=== PATIENT | female | born 1970 | race Hispanic/Latino ===

== ENCOUNTER 2017-01-17 08:57 | Inpatient (IN) | payer OTHER ==
[2017-01-17 10:17] LABS: Basophils % (Auto) 0.2 % (0.0-1.8); Eosinophils % (Auto) 0.4 % (0.0-4.3); Hematocrit 26.1 % (30.3-42.9); Hemoglobin 8.1 gm/dl (10.1-14.3); Mean Corpuscular HGB Conc 31 % (30-34); Mean Corpuscular Volume 82 fl (79-97); Platelet Count 187 K/mm3 (140-440); Red Blood Count 3.19 M/mm3 (3.65-5.03); Red Cell Distribution Width 15.4 % (13.2-15.2); White Blood Count 6.2 K/mm3 (4.5-11.0)
--- NOTE | 2017-01-17 10:21 | Cat Scan Report ---
HEAD CT WITHOUT CONTRAST INDICATION: Neurologic deficits less than 6 hours or symptoms present upon awakening. 98N. COMPARISON: None similar at this institution. FINDINGS: Noncontrast head CT demonstrates normal ventricles and sulci without acute or recent infarct, hemorrhage, mass effect or midline shift. No abnormal extra-axial fluid collections. Posterior fossa structures and basilar cisterns appear within normal limits. Mild left sphenoid sinus mucosal thickening. Clear remainder imaged paranasal sinuses and mastoid air cells. Slight leftward nasal septal bowing. Intact calvarium. Normal scalp soft tissues. Few missing teeth. CONCLUSION: No acute intracranial CT abnormality with few other findings, as above. MRI is more sensitive for detection of acute infarct and may be useful for further evaluation in the setting of a focal neurologic deficit. I phoned the above results to Dr. Scott in the ER, 10:10 AM, 01/17/2017. Thank you for the opportunity to participate in this patient's care.
[2017-01-17 10:22] LABS: Mean Corpuscular Hemoglobin 25 pg (28-32)
[2017-01-17 10:26] LABS: INR 0.88 (0.87-1.13); Partial Thromboplastin Time 26.9 Sec. (24.2-36.6)
[2017-01-17 10:33] LABS: BUN/Creatinine Ratio 14.28; Blood Urea Nitrogen 10 mg/dL (7-17); Calcium 8.3 mg/dL (8.4-10.2); Carbon Dioxide 21 mmol/L (22-30); Glucose 102 mg/dL (65-100)
[2017-01-17 10:34] LABS: Anion Gap 16 mmol/L; Chloride 108.5 mmol/L (98-107); Potassium 3.7 mmol/L (3.6-5.0); Sodium 142 mmol/L (137-145)
[2017-01-17] MEDS ORDERED: ASPIRIN PO ONE (10:52)
--- NOTE | 2017-01-17 11:02 | Emergency Department Report ---
HPI - General Chief Complaint: Neuro Symptoms/Deficit Time Seen by Provider: 01/17/17 10:43 - HPI HPI: Room 4 The patient is a 46-year-old female presenting with a chief complaint of right- sided weakness. Patient states she awakened this morning at approximately 06: 00 and was unable to move her right arm or leg. The patient states she had tingling in her entire right side of her body and had developed slurred speech. Patient states on her way to the hospital she was able to move her right side slightly. The patient states the weakness has since resolved and now she just feels as though her speech is a little slurred and she still has tingling on the right side of her body. Patient denies any previous episodes of the same. Of note the patient states she has a history of menorrhagia and has prolonged cycles. The patient states her current cycle has been on for approximately 5 weeks and is now subsiding. Patient states she goes through approximately 15 pads per day when she is on her cycle Location: Right side Duration: Intermittent since 06:00 Quality:, Weakness, Tingling Severity: Moderate Modifying factors: [see above] Context: [see above] Mode of transportation: [not driving] ED Past Medical Hx - Past Medical History Previous Medical History?: Yes Additional medical history: Aortic stenosis, menorrhagia - Surgical History Past Surgical History?: Yes Hx Open Heart Surgery: Yes (Aortic Valvulotomy at age 12) - Family History Family history: no significant - Social History Smoking Status: Current Every Day Smoker (1/2 pack per day) Substance Use Type: Alcohol - Medications Home Medications: Home Medications Medication Instructions Recorded Confirmed Last Taken Type No Known Home Medications [No 01/17/17 01/17/17 Unknown History Reported Home Medications] ED Review of Systems ROS: Stated complaint: RT SIDE NUMBNESS Other details as noted in HPI Comment: All other systems reviewed and negative Constitutional: denies: chills, fever Eyes: denies: eye pain, eye discharge, vision change ENT: denies: ear pain, throat pain Respiratory: denies: cough, shortness of breath, wheezing Cardiovascular: denies: chest pain, palpitations Endocrine: no symptoms reported Gastrointestinal: denies: abdominal pain, nausea, diarrhea Genitourinary: abnormal menses. denies: urgency, dysuria, discharge Musculoskeletal: denies: back pain, joint swelling, arthralgia Skin: denies: rash, lesions Neurological: weakness, paresthesias. denies: headache Psychiatric: denies: anxiety, depression Hematological/Lymphatic: denies: easy bleeding, easy bruising Physical Exam - Physical Exam Vital Signs: Vital Signs 01/17/17 01/17/17 01/17/17 09:10 10:09 10:10 Temperature 97.9 F Pulse Rate 75 67 61 Respiratory 16 14 14 Rate Blood Pressure 156/76 O2 Sat by Pulse 100 100 Oximetry 01/17/17 01/17/17 10:21 10:30 Temperature Pulse Rate 70 78 Respiratory 12 14 Rate Blood Pressure 128/76 120/58 O2 Sat by Pulse Oximetry Physical Exam: GENERAL: The patient is well-developed well-nourished female lying on stretcher not appearing to be in acute distress. [] HEENT: Normocephalic. Atraumatic. Extraocular motions are intact. Patient has moist mucous membranes. NECK: Supple. Trachea Midline CHEST/LUNGS: Clear to auscultation. There is no respiratory distress noted. HEART/CARDIOVASCULAR: Regular. There is no tachycardia. There is no gallop rub or murmur. ABDOMEN: Abdomen is soft, nontender. Patient has normal bowel sounds. There is no abdominal distention. SKIN: There is no rash. There is no edema. There is no diaphoresis. NEURO: The patient is awake, alert, and oriented. The patient is cooperative. The patient has no focal neurologic deficits. The patient has normal speech. Cranial nerves II through XII grossly intact, no drift, lifestyle director 5+/5 bilaterally. Normal sensation throughout. Moves all extremities well MUSCULOSKELETAL: There is no evidence of acute injury. 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 Harding- requests that the hospitalist but in a consult if they would like him to see the patient while she is in the hospital ED Medical Decision Making - Lab Data Result diagrams: 01/17/17 09:58 01/17/17 09:58 Laboratory Tests 01/17/17 01/17/17 01/17/17 09:58 09:58 09:58 WBC 6.2 RBC 3.19 L Hgb 8.1 L Hct 26.1 L MCV 82 MCH 25 L MCHC 31 RDW 15.4 H Plt Count 187 Lymph % (Auto) 15.5 [place] % (Auto) 9.6 H Eos % (Auto) 0.4 Baso % (Auto) 0.2 Lymph # 1.0 L [place] # 0.6 Eos # 0.0 Baso # 0.0 Seg Neutrophils % 74.3 H Seg Neutrophils # 4.6 PT 11.8 L INR 0.88 APTT 26.9 Thrombin Time Sodium 142 Potassium 3.7 Chloride 108.5 H Carbon Dioxide 21 L Anion Gap 16 BUN 10 Creatinine 0.7 Estimated GFR > 60 BUN/Creatinine Ratio 14.28 Glucose 102 H Calcium 8.3 L Troponin T < 0.010 01/17/17 09:58 WBC RBC Hgb Hct MCV MCH MCHC RDW Plt Count Lymph % (Auto) [place] % (Auto) Eos % (Auto) Baso % (Auto) Lymph # [place] # Eos # Baso # Seg Neutrophils % Seg Neutrophils # PT INR APTT Thrombin Time 16.3 Sodium Potassium Chloride Carbon Dioxide Anion Gap BUN Creatinine Estimated GFR BUN/Creatinine Ratio Glucose Calcium Troponin T - EKG Data -: EKG Interpreted by Or EKG shows normal: sinus rhythm Rate: normal - EKG Data When compared to previous EKG there are: previous EKG unavailable Interpretation: nonspecific ST-T wave jasson (biphasic T waves in leads 2, 3, aVF, V6) - Radiology Data Radiology results: report reviewed (CT head), image reviewed (CT head) CT head (read by radiologist)-no acute intracranial CT abnormality with a few other findings. - Differential Diagnosis CVA, TIA, menorrhagia Critical care attestation.: If time is entered above; I have spent that time in minutes in the direct care of this critically ill patient, excluding procedure time. ED Disposition Clinical Impression: Transient neurologic deficit, Menorrhagia Disposition: OP ADMITTED IP TO THIS HOSP Is pt being admited?: Yes Does the pt Need Aspirin: Yes Condition: Fair Referrals: PRIMARY CARE, [Primary Care Provider] - 3-5 Days Time of Disposition: 11:04 (hospitalist paged)
--- NOTE | 2017-01-17 11:17 | Admit Criteria Form ---
Admission Criteria Documentation: TRANSIENT ISCHEMIC ATTACK (TIA) Clinical Indications for Admission to Inpatient Care (Place 'X' for any and all applicable criteria): Admission is indicated for ANY ONE of the following(1)(2)(3)(4)(5): [ ]I. Immediate inpatient procedure is needed (eg, endarterectomy). [X ]II. Inpatient admission required rather than observation care (Also use Transient Ischemic Attack (TIA): Observation Care Criteria as appropriate) because of ANY ONE of the following: [X ]a) Focal neurologic signs or symptoms persist or recurring [ ]b) Cardiac arrhythmias of immediate concern [ ]c) Clinically significant cardiac disorder identified that requires inpatient care (eg, severe valvular disease, atrial myxoma, cardiomyopathy) [ ]d) Hypertension requiring inpatient treatment [ ]e) Parenteral anticoagulation required (eg, alternative forms of anticoagulation not appropriate or not feasible) as indicated by ALL of the following(13): [ ]i) Temporary subtherapeutic anticoagulation unacceptable because of high risk of short-term venous or arterial thromboembolism due to ANY ONE of the following(14)(15)(16): [ ]1) Atrial fibrillation suspected as etiology of TIA(17)(18)(19)(20)(21) [ ]2) Venous thromboembolism within past 12 months [ ]3) Underlying malignancy [ ]4) Patient with mechanical cardiac valve(22)( 23) [ ]5) Underlying hypercoagulable state (eg, protein C or protein S deficiency antithrombin deficiency, antiphospholipid antibodies) [ ]6) Patient at temporary high risk of thromboembolism (eg, status post orthopedic surgery) [ ]ii) Contraindications to outpatient use of "bridging" agent or alternative oral anticoagulant[B] as indicated by ALL of the following: [ ]1) Contraindication to outpatient use of low- molecular-weight heparin as "bridging" agent as indicated by ANY ONE of the following(15): [ ]A. Documented current or history of heparin-induced thrombocytopenia(24) [ ]B. Severe thrombocytopenia (eg, platelet count less than 50,000/mm3 (71p592/L) [ ]C. Documented allergy to heparin, low- molecular-weight heparin, or pork products [ ]D. Renal failure (creatinine clearance less than 30 mL/min/1.73m2 (0.50mL/sec/1.73m2) or on dialysis) [ ]E. Inability to manage self-injection ( eg, by patient, caregiver, or visiting nurse) [ ]2) Contraindication to outpatient use of fondaparinux as "bridging" agent as indicated by ANY ONE of the following(25)(26 )(27)(28): [ ]A. Severe thrombocytopenia (eg, platelet count less than 50,000/mm3 (50 x109/L)) [ ]B.Hypersensitivity to fondaparinux, related drugs, or product components [ ]C.Renal failure (creatinine clearance less than 30 mL/min/1.73m2 (0.50mL/sec/1.73m2) or on dialysis) [ ]D.Inability to manage self-injection ( eg, by patient, caregiver, or visiting nurse [ ]3. Oral direct thrombin inhibitor (eg, dabigatran) or oral coagulation factor Xa inhibitor (eg, rivaroxaban, apixaban) not appropriate as oral anticoagulation (eg, indication not appropriate) or contraindicated (eg, hypersensitivity, creatinine clearance less than 15 mL/min/1.73m2 ( 0.25 mL/sec/1.73m2) or on dialysis). [ ]f) Continuous IV infusion of anticoagulant, platelet inhibitor, vasoactive or antiarrhythmia(18)(19) [ ]g) Other condition, treatment, or monitoring requiring inpatient admission [ ]III. Contraindications and/or Inappropriate clinical situations for Observational Care in patients with Transient Ischemic Attack (TIA), when ANY ONE of the following is required: [ ]a) Patient with persistent or severe neurological deficit 24 [ ]b) Patient with acute CVA or other identified pathology should be admitted to inpatient for further care 25 [ ]IV. General contraindications and/or Inappropriate clinical situations for Observational Care in patients with Transient Ischemic Attack (TIA), when ANY ONE of the following is required: [ ]a) Prediction of prolongation of LOS based on ANY ONE of the following may be considered as a contraindication for observational care 2, 3, 4, 5, 6, 7, 8, 9, 10, 11 [ ]i) Age > 65 yrs. [ ]ii) Patient arriving by ambulance [ ]iii) Patient with high acuity [ ]iv) Patient requiring vital sign monitoring [ ]v) Patient on IV medication [ ]b) Systolic blood pressures 180mmHg 3,12 [ ]c) Patient with altered mental status including delirium and other alteration of consciousness, (3) [ ]d) Patient whose discharge disposition will be to a detention home or rehabilitation home should not be managed in Emergency Department Observation Unit. CMS rule requires 3 days hospital stay before such placement.3,13 [ ]e) Patient with failure to thrive due to broad array of etiologies 3,16,17 [ ]f) Inability to ambulate 3,14 Extended stay beyond goal length of stay may be needed for(4)(30)(32): [ ]a) Parenteral anticoagulation required [ ]b) Dangerous arrhythmia [ ]c) Cardiac valvular disorder, atrial myxoma, cardiomyopathy [ ]d) Uncontrolled severe hypertension [ ]e) Severe carotid stenosis [ ]f) Active comorbidities (eg, heart failure) [ ]g) Extracranial vertebrobasilar disease(29) [ ]h) Clinical evolution of TIA into cerebrovascular accident (stroke) The original [employer] content created by [employer] has been revised. The portions of thecontent which have been revised are identified through the use of italic text or in bold, and [facility] has neither reviewed nor approved the modified material. All other unmodified content is copyright [email or web address] [employer] [employer]. Please see references footnoted in the original [email or web address] edition 2016 Admission Criteria Met: Yes
--- NOTE | 2017-01-17 21:24 | History and Physical Report ---
History of Present Illness Date of examination: 01/17/17 Date of admission: 01/17/17 11:19 Chief complaint: CC R side numbness and weakness since 6am through 12noon. Also facial droop since 6 am which has resolved in couple of hours. History of present illness: 46 y/o female with no significant PMH except congenital Aortic stenosis which was repaired at age 12 yrs comes in for Rt upper extremity and RLE numbness and weakness since 6 am which resolved completely by 12 noon.Was not able to walk.Also had slurred speechwhich has resolved.No CP or SOB.Has been doing cocaine off and on for last 10 years.Last use was 3 days ago.No recent travel.Not on any blood thenners. Past History Past Medical History: other (Aortic stenosis with valvotomy at age 12; Menorrhagia for 1 mth) Past Surgical History: Other (Aortic stenosis with valvotomy and D&c) Social history: lives with family, smoking (1/2 ppd), full code, other (Cocaine use for 10 years) Family history: hypertension Medications and Allergies Allergies Allergy/AdvReac Type Severity Reaction Status Date / Time No Known Allergies Allergy Unverified 01/17/17 09:15 Home Medications Medication Instructions Recorded Confirmed Last Taken Type No Known Home Medications [No 01/17/17 01/17/17 Unknown History Reported Home Medications] Review of Systems Constitutional: no weight loss, no weight gain Ears, nose, mouth and throat: no hoarseness, no sore throat, no swelling in mouth, no swelling in throat Cardiovascular: no chest pain, no orthopnea, no palpitations, no rapid/ irregular heart beat, no edema, no syncope, no lightheadedness, no shortness of breath Respiratory: no shortness of breath, no dyspnea on exertion, no congestion, no wheezing Gastrointestinal: no nausea, no vomiting, no diarrhea, no constipation, no change in bowel habits, no hematemesis, no coffee ground emesis Genitourinary Female: menorrhagia (Excessive vaginal bleeding for 1 mth.Similar episode in 2015) Musculoskeletal: no neck stiffness, no neck pain, no shooting arm pain, no arm numbness/tingling, no low back pain, no shooting leg pain, no leg numbness/ tingling, no redness of joints Integumentary: no rash, no pruritis, no redness, no sores, no wounds, no jaundice, no boils, no blisters Neurological: transient paralysis (RUE and RLE), parathesias Psychiatric: no anxiety, no depression Endocrine: no cold intolerance, no heat intolerance, no polydipsia, no polyuria , no weight change Hematologic/Lymphatic: no easy bruising, no easy bleeding Allergic/Immunologic: no urticaria, no allergic rhinitis, no wheezing Exam - Physical Exam Narrative exam: Well developed well nourished female lying bed comfortably - Constitutional Vitals: Temp Pulse Resp BP Pulse Ox 98.6 F 80 18 121/70 98 01/17/17 21:05 01/17/17 21:05 01/17/17 21:05 01/17/17 21:05 01/17/17 21:05 General appearance: Present: no acute distress, well-nourished - EENT Eyes: Present: PERRL ENT: hearing intact, clear oral mucosa - Neck Neck: Present: supple, normal ROM - Respiratory Respiratory effort: normal Respiratory: bilateral: CTA - Cardiovascular Heart rate: 70 Rhythm: regular Heart Sounds: Present: S1 & S2. Absent: rub, click - Extremities Extremities: no ischemia, pulses intact, pulses symmetrical, No edema Peripheral Pulses: within normal limits - Abdominal General gastrointestinal: Present: soft, non-tender, non-distended, normal bowel sounds Female genitourinary: Present: normal - Integumentary Integumentary: Present: clear, warm, dry - Musculoskeletal Musculoskeletal: strength equal bilaterally, other (Reflexes normal power 5/5 all 4 extremities) - Psychiatric Psychiatric: appropriate mood/affect, intact judgment & insight - Neurologic Neurologic: CNII-XII intact, moves all extremities Results - Labs CBC & Chem 7: 01/18/17 04:01 01/18/17 04:01 Labs: Laboratory Last Values WBC 6.2 K/mm3 (4.5-11.0) 01/17/17 09:58 RBC 3.19 M/mm3 (3.65-5.03) L 01/17/17 09:58 Hgb 8.1 gm/dl (10.1-14.3) L 01/17/17 09:58 Hct 26.1 % (30.3-42.9) L 01/17/17 09:58 MCV 82 fl (79-97) 01/17/17 09:58 MCH 25 pg (28-32) L 01/17/17 09:58 MCHC 31 % (30-34) 01/17/17 09:58 RDW 15.4 % (13.2-15.2) H 01/17/17 09:58 Plt Count 187 K/mm3 (140-440) 01/17/17 09:58 Lymph % (Auto) 15.5 % (13.4-35.0) 01/17/17 09:58 Jay % (Auto) 9.6 % (0.0-7.3) H 01/17/17 09:58 Eos % (Auto) 0.4 % (0.0-4.3) 01/17/17 09:58 Baso % (Auto) 0.2 % (0.0-1.8) 01/17/17 09:58 Lymph # 1.0 K/mm3 (1.2-5.4) L 01/17/17 09:58 Jay # 0.6 K/mm3 (0.0-0.8) 01/17/17 09:58 Eos # 0.0 K/mm3 (0.0-0.4) 01/17/17 09:58 Baso # 0.0 K/mm3 (0.0-0.1) 01/17/17 09:58 Seg Neutrophils % 74.3 % (40.0-70.0) H 01/17/17 09:58 Seg Neutrophils # 4.6 K/mm3 (1.8-7.7) 01/17/17 09:58 PT 11.8 Sec. (12.2-14.9) L 01/17/17 09:58 INR 0.88 (0.87-1.13) 01/17/17 09:58 APTT 26.9 Sec. (24.2-36.6) 01/17/17 09:58 Thrombin Time 16.3 Sec. (15.1-19.6) 01/17/17 09:58 Sodium 142 mmol/L (137-145) 01/17/17 09:58 Potassium 3.7 mmol/L (3.6-5.0) 01/17/17 09:58 Chloride 108.5 mmol/L (98-107) H 01/17/17 09:58 Carbon Dioxide 21 mmol/L (22-30) L 01/17/17 09:58 Anion Gap 16 mmol/L 01/17/17 09:58 BUN 10 mg/dL (7-17) 01/17/17 09:58 Creatinine 0.7 mg/dL (0.7-1.2) 01/17/17 09:58 Estimated GFR > 60 ml/min 01/17/17 09:58 BUN/Creatinine Ratio 14.28 % 01/17/17 09:58 Glucose 102 mg/dL (65-100) H 01/17/17 09:58 Calcium 8.3 mg/dL (8.4-10.2) L 01/17/17 09:58 Troponin T < 0.010 ng/mL (0.00-0.029) 01/17/17 09:58 Short CBC 01/17/17 01/18/17 Range/Units 09:58 04:01 WBC 6.2 5.0 (4.5-11.0) K/mm3 Hgb 8.1 L 7.6 L (10.1-14.3) gm/dl Hct 26.1 L 24.5 L (30.3-42.9) % Plt Count 187 163 (140-440) K/mm3 BMP 01/17/17 01/18/17 09:58 04:01 Sodium 142 143 Potassium 3.7 3.5 L Chloride 108.5 H 109.7 H Carbon Dioxide 21 L 22 BUN 10 9 Creatinine 0.7 0.7 Glucose 102 H 118 H Calcium 8.3 L 7.8 L Cardiac Enzymes 01/17/17 Range/Units 09:58 Troponin T < 0.010 (0.00-0.029) ng/mL Liver Function 01/18/17 Range/Units 04:01 Total Bilirubin < 0.2 (0.1-1.2) mg/dL AST 12 (5-40) units/L ALT 8 (7-56) units/L Alkaline Phosphatase 67 (35-129) units/L Albumin 2.8 L (3.9-5) g/dL - Imaging and Cardiology CT Scan - head: report reviewed (Negative) Assessment and Plan Advance Directives: Yes (Full code) VTE prophylaxis?: Chemical, Mechanical (SCD's only.No Lovenox b/c of Menorrhagia ) Plan of care discussed with patient/family: Yes - Patient Problems (1) Transient neurologic deficit Current Visit: Yes Status: Acute Plan to address problem: Classic TIA - work up for TIA.-MRI /MRA/ECHO /Carotid duplex ordered.[id number] 2 tabs qd . (2) Anemia Current Visit: Yes Status: Acute Qualifiers: Anemia type: iron deficiency Iron deficiency anemia type: I Vitamin B12 deficiency anemia type: V Folate deficiency anemia type: F Bone marrow failure anemia type: B Hemolytic anemia type: H Other causes of anemia: O Plan to address problem: Sec to Menorrhagia.Iron supplements.[employer] consult ordered.No PRBC at this point. (3) Cocaine abuse Current Visit: Yes Status: Acute Plan to address problem: Counselled (4) Nicotine dependence Current Visit: Yes Status: Chronic Qualifiers: Nicotine product type: cigarettes Substance use status: S Plan to address problem: Nicoderm patch ordered (5) DVT prophylaxis Current Visit: Yes Status: Chronic Plan to address problem: SCD's only
[2017-01-17] MEDS ORDERED: MILK OF MAGNESIA PO PRN ×2 (21:28→21:30)
[2017-01-17] MEDS ORDERED: DULCOLAX PR PRN ×2 (21:28→21:30)
[2017-01-17] MEDS ORDERED: AMBIEN PO PRN (21:28)
[2017-01-17] MEDS ORDERED: DILAUDID IV PRN (21:28)
[2017-01-17] MEDS ORDERED: TYLENOL PO PRN ×2 (21:28→21:30)
[2017-01-17] MEDS ORDERED: ZOFRAN IV PRN ×2 (21:28→21:30)
[2017-01-17] MEDS ORDERED: PERCOCET 5/325 PO PRN (21:28)
[2017-01-17] MEDS ORDERED: SODIUM CHLORIDE FLUSH SYRINGE 10 ML IV PRN (21:40)
[2017-01-17] MEDS ORDERED: D5NS 1,000 ML IV SCH (22:00)
[2017-01-17] MEDS ORDERED: ZOCOR PO SCH (23:00)
[2017-01-18 05:48] LABS: Basophils % (Auto) 0.3 % (0.0-1.8); Hematocrit 24.5 % (30.3-42.9); Hemoglobin 7.6 gm/dl (10.1-14.3); Mean Corpuscular HGB Conc 31 % (30-34); Mean Corpuscular Volume 83 fl (79-97); Platelet Count 163 K/mm3 (140-440); Red Blood Count 2.96 M/mm3 (3.65-5.03); Red Cell Distribution Width 15.3 % (13.2-15.2)
[2017-01-18 05:50] LABS: Alanine Aminotransferase 8 units/L (7-56); Albumin 2.8 g/dL (3.9-5); Alkaline Phosphatase 67 units/L (35-129); Anion Gap 15 mmol/L; BUN/Creatinine Ratio 12.85; Bilirubin,Total < 0.2 mg/dL (0.1-1.2); Blood Urea Nitrogen 9 mg/dL (7-17); Calcium 7.8 mg/dL (8.4-10.2); Carbon Dioxide 22 mmol/L (22-30); Chloride 109.7 mmol/L (98-107); Glucose 118 mg/dL (65-100); Mean Corpuscular Hemoglobin 26 pg (28-32); Potassium 3.5 mmol/L (3.6-5.0); Sodium 143 mmol/L (137-145); Total Protein 5.5 g/dL (6.3-8.2)
[2017-01-18 06:08] LABS: Cholesterol 114 mg/dL (50-199); HDL Cholesterol 42 mg/dL (40-59); LDL Cholesterol,Direct 60 mg/dL (50-130); Triglycerides 62 mg/dL (2-149)
[2017-01-18] MEDS ORDERED: K-DUR PO ONE (08:01)
[2017-01-18] MEDS ORDERED: NACL 0.9% 500 ML 500 ML IV ONE (08:15)
[2017-01-18 09:01] LABS: Iron 9 ug/dL (37-170); Transferrin 287 mg/dl (192-382)
[2017-01-18] MEDS ORDERED: BABY ASPIRIN PO SCH (10:00)
[2017-01-18] MEDS ORDERED: HABITROL TD SCH (10:00)
--- NOTE | 2017-01-18 10:47 | Discharge Summary ---
Providers - Providers Date of Admission: 01/17/17 11:19 Date of discharge: 01/18/17 Attending physician: TEJA NAGY MD 01/17/17 21:28 Consult to Physician [CONS] Routine Consulting Provider: BRANDAN AGUIRRE Reason For Exam: TIA Place consult to:: Dr. Aguirre Notified:: Yazmin RN Phone number called:: Ext [phone] Was contact made?: Yes If yes, spoke with:: Voicemail with consult info left for Valarie Bruner Time called:: 08:15 01/17/17 21:40 Occupational Therapy Evaluate and Treat [CONS] Routine Comment: Reason For Exam: Neuro deficits Physical Therapy Evaluation and Treat [CONS] Routine Comment: Reason For Exam: Neuro deficits 01/18/17 07:59 Consult to Physician [CONS] Routine Consulting Provider: MARILYN BUSH Reason For Exam: Menorrhagia Place consult to:: Dr. Bush Notified:: Yazmin RN Phone number called:: Was contact made?: Yes If yes, spoke with:: Dr. Jeong Time called:: 08:23 Primary care physician: [employer] Hospitalization Reason for admission: TIA Condition: Stable Hospital course: 46 year old with perimenopausal DUB. CC R side numbness and weakness since 6am through 12noon. Also facial droop since 6 am which has resolved in couple of hours. History of present illness: 46 y/o female with no significant PMH except congenital Aortic stenosis which was repaired at age 12 yrs comes in for Rt upper extremity and RLE numbness and weakness since 6 am which resolved completely by 12 noon.Was not able to walk .Also had slurred speech which has resolved.No CP or SOB.Has been doing cocaine off and on for last 10 years. Last use was 3 days ago. No recent travel. Not on any blood thenners. Imaging studies including CT was initially negative MRI did show 2 small areas of ischemia to the left basal ganglia. This is likely secondary to the vasoconstrictive effect of cocaine. We did have extensive discussion with the patient about compliance. She verbalized understanding. She understands that she is to take aspirin daily for life and statins. Her cholesterol remarkably is good. She is to follow with cardiology and neurology outpatient. Her facial droop has resolved her speech is back to normal. 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 Patient was initially admitted for symptoms consistent with TIA and would not be a candidate for oral contraceptives to control bleeding. Patient advised to seek topstitcher zigzag consult and care as outpatient. Patient also advised to continue use of iron as outpatient. patient also given script for Aygestin to use as needed should heavy and prolonged bleeding return" Discharge diagnosis (1) CVA (2) Anemia secondary to menorrhagia (3) Cocaine abuse (4) Nicotine dependence Disposition: DISCHARGED TO HOME OR SELFCARE Time spent for discharge: 35 mins Core Measure Documentation - Palliative Care Palliative Care/ Comfort Measures: Not Applicable - Core Measures Any of the following diagnoses?: stroke - VTE Discharge Requirements Deep Vein Thrombosis/Pulmonary Embolism Present on Admission: No - Stroke Discharge Requirements Statin for LDL = or >70 mg/dl on DC: No Anticoag for atrial fib/atrial flutter: Not Applicable Antithrombotic for ischemic stroke: Yes Exam - Physical Exam Narrative exam: VITAL SIGNS: Reviewed. GENERAL: The patient appeared well nourished and normally developed. Vital signs as documented. HEAD: No signs of head trauma. EYES: Pupils are equal. Extraocular motions intact. EARS: Hearing grossly intact. MOUTH: Oropharynx is normal. NECK: No adenopathy, no JVD. CHEST: Chest with clear breath sounds bilaterally. No wheezes, rales, or rhonchi. CARDIAC: Regular rate and rhythm. S1 and S2, without murmurs, gallops, or rubs. VASCULAR: No Edema. Peripheral pulses normal and equal in all extremities. ABDOMEN: Soft, without detectable tenderness. No sign of distention. No rebound or guarding, and no masses palpated. Bowel Sounds normal. MUSCULOSKELETAL: Good range of motion of all major joints. Extremities without clubbing, cyanosis or edema. NEUROLOGIC EXAM: Alert and oriented x 3. No focal sensory or strength deficits. Speech normal. Follows commands. PSYCHIATRIC: Mood normal. SKIN: Neck and upper extremity tattoos. 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
--- NOTE | 2017-01-18 11:28 | Magnetic Resonance Report ---
MRI scan of brain: History: Stroke. Technique: Multiplanar, multisequence images were obtained without contrast injection. Findings: There is 2 mm focal area of restricted diffusion noted at the mid and posterior left basal ganglia. Corresponding hyperintense signal is noted on flair imaging and T2 weighted image. No evidence of hemorrhage. No extra-axial fluid collection. Normal brainstem and cerebellum. Normal sinuses and mastoid air cells. Impression: 2 small focal areas of acute ischemia left basal ganglia. No hemorrhage.
--- NOTE | 2017-01-18 11:30 | Magnetic Resonance Report ---
MRA of brain: History: Stroke. Findings: The vessels of [place] are widely patent. No evidence of aneurysm, stenosis or occlusion or dissection. Codominant vertebral arteries with normal basilar artery. Hypoplastic posterior communicating artery with normal posterior cerebral arteries. Impression: Essentially negative MRA study.
--- NOTE | 2017-01-18 13:11 | Consultation ---
History of Present Illness Consult date: 01/18/17 Requesting physician: KATALINA ROYAL Reason for consult: menorrhagia History of present illness: patient is a 46 year old G1 with history of cocaine abuse who also has menorrhagia which has been an issue intermittently over the years. patient claims to have bled for 11 months straight while incarcerated.She has been bleeding for about one month at this point, but states that it is slowing down now. Past History Past Surgical History: no surgical history Social history: single, other (cocaine abuse) Medications and Allergies Allergies Allergy/AdvReac Type Severity Reaction Status Date / Time No Known Allergies Allergy Unverified 01/17/17 09:15 Home Medications Medication Instructions Recorded Confirmed Last Taken Type Aspirin [Aspirin BABY CHEW TAB] 81 mg PO QDAY #30 tab.chew 01/18/17 Unknown Rx Norethindrone Acetate [Aygestin] 5 mg PO DAILY #10 tablet 01/18/17 Unknown Rx Simvastatin [Zocor TAB] 20 mg PO QHS #30 tablet 01/18/17 Unknown Rx Active Meds: Active Medications Acetaminophen (Tylenol) 650 mg PO Q4H PRN PRN Reason: Pain MILD(1-3)/Fever >100.5/YOUSIF Aspirin (Baby Aspirin) 81 mg PO QDAY [facility] Last Admin: 01/18/17 11:04 Dose: 81 mg Bisacodyl (Dulcolax) 10 mg VT QDAY PRN PRN Reason: Constipation unrelieved by MOM Bisacodyl (Dulcolax) 10 mg VT QDAY PRN PRN Reason: Constipation unrelieved by MOM Hydromorphone HCl (Dilaudid) 0.5 mg IV Q3H PRN PRN Reason: Pain , Severe (7-10) Dextrose/Sodium Chloride (D5ns) 1,000 mls @ 100 mls/hr IV DIRECT [facility] Last Admin: 01/17/17 22:23 Dose: 100 mls/hr Magnesium Hydroxide (Milk Of Magnesia) 30 ml PO Q4H PRN PRN Reason: Constipation Nicotine (Habitrol) 14 mg TD QDAY [facility] Last Admin: 01/18/17 11:05 Dose: 14 mg Ondansetron HCl (Zofran) 4 mg IV Q8H PRN PRN Reason: N/V unrelieved by Reglan Oxycodone/Acetaminophen (Percocet 5/325) 1 tab PO Q6H PRN PRN Reason: Pain, Moderate (4-6) Simvastatin (Zocor) 40 mg PO QHS [place] Sodium Chloride (Sodium Chloride Flush Syringe 10 Ml) 10 ml IV PRN PRN PRN Reason: LINE FLUSH Zolpidem Tartrate (Ambien) 5 mg PO QHS PRN PRN Reason: Insomnia Last Admin: 01/17/17 22:23 Dose: 5 mg Review of Systems All systems: negative Genitourinary: vaginal bleeding Musculoskeletal: arm numbness/tingling Neurological: weakness, parathesias - Vital Signs Vital signs: Vital Signs Temp Pulse Resp BP Pulse Ox 97.9 F 75 16 156/76 100 01/17/17 09:10 01/17/17 09:10 01/17/17 09:10 01/17/17 09:10 01/17/17 09:10 Temp Pulse Resp BP Pulse Ox 97.8 F 66 18 136/70 99 01/18/17 11:34 01/18/17 11:34 01/18/17 11:34 01/18/17 11:34 01/18/17 11:34 - Physical Exam Breasts: Cardiovascular: Regular rate, Normal S1, Normal S2 Lungs: Positive: Clear to auscultation, Normal air movement Abdomen: Positive: normal appearance, soft, normal bowel sounds. Negative: distention, tenderness Vulva: both: normal Vagina: Positive: normal moisture. Negative: discharge Cervix: Negative: lesion, discharge Uterus: Positive: normal size, normal contour Adnexa: both: normal Anus/Rectum: Positive: normal perianal skin, heme negative. Negative: rectal mass, hemorrhoids Extremities: Deep Tendon Reflex Grade: Normal +2 Results Result Diagrams: 01/18/17 04:01 01/18/17 04:01 Abnormal lab results 01/18/17 01/18/17 01/18/17 Range/Units 04:01 04:01 08:15 RBC 2.96 L (3.65-5.03) M/mm3 Hgb 7.6 L (10.1-14.3) gm/dl Hct 24.5 L (30.3-42.9) % MCH 26 L (28-32) pg RDW 15.3 H (13.2-15.2) % [place] % (Auto) 10.1 H (0.0-7.3) % Potassium 3.5 L (3.6-5.0) mmol/L Chloride 109.7 H (98-107) mmol/L Glucose 118 H (65-100) mg/dL Calcium 7.8 L (8.4-10.2) mg/dL Iron 9 L (37-170) ug/dL Total Protein 5.5 L (6.3-8.2) g/dL Albumin 2.8 L (3.9-5) g/dL Crossmatch 01/18/17 Range/Units 11:09 RBC (3.65-5.03) M/mm3 Hgb (10.1-14.3) gm/dl Hct (30.3-42.9) % MCH (28-32) pg RDW (13.2-15.2) % [place] % (Auto) (0.0-7.3) % Potassium (3.6-5.0) mmol/L Chloride (98-107) mmol/L Glucose (65-100) mg/dL Calcium (8.4-10.2) mg/dL Iron (37-170) ug/dL Total Protein (6.3-8.2) g/dL Albumin (3.9-5) g/dL Crossmatch See Detail All other labs normal. Assessment and Plan 46 year old with perimenopausal DUB. Patient has not had records custodian workup in many years and would need to do so do find cause of DUB, which is likely hormonal. Patient was initially admitted for symptoms consistent with TIA and would not be a candidate for oral contraceptives to control bleeding. Patient advised to seek records custodian consult and care as outpatient. Patient also advised to continue use of iron as outpatient. patient also given script for Aygestin to use as needed should heavy and prolonged bleeding return. Thank you for this consult.
[2017-01-18 21:57] VITALS: BP 121/58
[2017-01-18] MEDS ORDERED: ZOCOR PO SCH (22:00)
== END 2017-01-18 20:35 | disposition home or self-care (01) | DRG 66 ==
LOC: ED 08:57 → 4A 11:19
PROVIDERS: ADMIT Internal Medicine; ATTEND Internal Medicine
DX: I63.9 Cerebral infarction, unspecified (principal); N92.0 Excessive and frequent menstruation with regular cycle; R29.818 Other symptoms and signs involving the nervous system; D64.9 Anemia, unspecified; F14.10 Cocaine abuse, uncomplicated; F17.200 Nicotine dependence, unspecified, uncomplicated; Z79.82 Long term (current) use of aspirin; Z82.49 Family history of ischemic heart disease and other diseases of the circulatory system
CPT/HCPCS: 36415; 70450; 70544; 70551; 80048; 80053; 80061; 82607; 82747; 83550; 84484; 85025; 85610; 85670; 85730; 86850; 86900; 86901; 86920; 93005; 93010; 93306; 93880; 99406; J7042; P9016

== ENCOUNTER 2018-06-03 11:18 | Emergency (ER) | payer SELFPAY | END 2018-06-03 11:19 | disposition left against medical advice (07) | LOC: ED 11:18 | DX: T63.301A Toxic effect of unspecified spider venom, accidental (unintentional), initial encounter (principal); Z53.21 Procedure and treatment not carried out due to patient leaving prior to being seen by health care provider ==